=== PATIENT | female | born 1985 | race African-American/Black ===

== ENCOUNTER 2016-12-26 18:56 | Inpatient (IN) | payer OTHER ==
[2016-12-27] MEDS ORDERED: Dibucaine 1% 28.35 GM TUBE PR PRN (04:54)
[2016-12-27] MEDS ORDERED: Acetaminophen TAB* 325 MG PO PRN (04:54)
[2016-12-27] MEDS ORDERED: Glycerin ADULT SUPP PR PRN (04:54)
[2016-12-27] MEDS ORDERED: Ibuprofen TAB* 600 MG PO PRN (04:54)
[2016-12-27] MEDS ORDERED: OXYTOCIN* 10 UNITS/ML 1 ML VIAL IM ONE (04:54)
[2016-12-27] MEDS: Witch Hazel PAD* JAR TOPICAL PRN (07:32)
[2016-12-27] MEDS: Docusate CAP* 100 MG PO SCH (08:10)
[2016-12-27] MEDS ORDERED: Simethicone CHEW TAB* 80 MG PO SCH (08:30)
[2016-12-28 07:15] LABS: Hematocrit 26 % (35-47); Hemoglobin 8.6 g/dl (12.0-16.0); Mean Corpuscular HGB Conc 33 g/dl (31-36); Mean Corpuscular Hemoglobin 23 pg (27-31); Mean Platelet Volume 9 um3 (7.4-10.4); Red Blood Count 3.77 10^6/ul (4.0-5.4); Red Cell Distribution Width 16 % (10.5-15)
[2016-12-28] MEDS: Docusate CAP* 100 MG PO SCH ×2 (07:20→09:04)
[2016-12-28 07:41] LABS: Comments Flag Yes
[2016-12-28 07:42] LABS: Mean Corpuscular Volume 70 fL (80-97)
[2016-12-28] MEDS: Ferrous Gluconate TAB* 324 MG TAB PO SCH ×2 (09:02→21:28)
[2016-12-28] MEDS: Witch Hazel PAD* JAR TOPICAL PRN (21:25)
--- NOTE | 2016-12-28 22:37 | PTEDU ---
Patient Name: TYREL LINDSEY TYREL LINDSEY selected video: Never Ever Shake a Baby to view on 12/28/2016 at 10:36:15 [id number]
--- NOTE | 2016-12-28 22:47 | PTEDU ---
Patient Name: TYREL LINDSEY TYREL LINDSEY selected video: BBOB: Nurturing Your Gorgeous \T\Growing Baby by to view on 12/28/2016 at 10:46:15 PM from [id number]
[2016-12-29 08:35] VITALS: BP 95/56
[2016-12-29] MEDS: Docusate CAP* 100 MG PO SCH (09:07)
[2016-12-29] MEDS: Ferrous Gluconate TAB* 324 MG TAB PO SCH (09:07)
== END 2016-12-29 13:52 | disposition home or self-care (01) | DRG 775 ==
LOC: MCHOBOUT 18:56 → MCHOB 20:19
PROVIDERS: ADMIT Obstetrics & Gynecology; ATTEND Obstetrics & Gynecology
PROC: 10E0XZZ Delivery of Products of Conception, External Approach (ICD-10-PCS; principal; 2016-12-27)
PROC: 0HQ9XZZ Repair Perineum Skin, External Approach (ICD-10-PCS; 2016-12-27)
DX: O48.0 Post-term pregnancy (principal); D57.3 Sickle-cell trait; O70.0 First degree perineal laceration during delivery; O99.02 Anemia complicating childbirth; D64.9 Anemia, unspecified; O77.0 Labor and delivery complicated by meconium in amniotic fluid; Z3A.40 40 weeks gestation of pregnancy; Z37.0 Single live birth
CPT/HCPCS: 36415; 85025; A9270-GY; J2590

== ENCOUNTER 2019-02-25 22:57 | Inpatient (IN) | payer OTHER ==
--- NOTE | 2019-02-26 01:42 | HP ---
General Information - Reason for Visit at 40 weeks, SROM and labor. - General Information Maternal Age: 32 Grav: 2 Para: 1 SAB: 0 IEA: 0 Estimated Due Date: 02/23/19 Determined By: Early Ultrasound Maternal Blood Type and Rh: O Positive - Results this Serology/RPR Result: Non-Reactive Rubella Result: Immune HBsAg Result: Negative HIV Result: Negative GBS Culture Result: Negative Past Medical History Delivery History: Hx Uncomplicated Vaginal Delivery, See Records Pertinent Past Medical History: See Records Past Medical History Comment: Sickle cell trait Eczema Uterine fibroids Pertinent Past Surgical History: See Records Past Surgical History Comment: Right knee ACL repair 2010 Pertinent Family History: See Records - Antepartal Records Antepartal Records: Reviewed, Uncomplicated Review of Systems Constitutional: Uncomfortable CV Complaint: No Respiratory: Shortness of Breath: No Gastrointestinal: No Nausea/Vomiting, Normal Bowel Movement Genitourinary: Leaking Fluid, No Dysuria, No Bleeding Musculoskeletal: Contractions Neurological: No Headache, No Visual Changes Movement: Normal Exam Allergies/Adverse Reactions: Allergies MS Mustard Seed [Mustard Seed] Adverse Reaction (Verified 02/25/19 23:40) Itching Temp 98.2 BP 94/60 P108 RR 20 - Measurements Height: 5 ft 3 in Weight: 167 lb Weight in lbs: [id number] Body Mass Index (BMI): 29.5 Pre- Weight: 140 lb Weight Gained This : 27 lbs and 0 ozs - Exam Breast: Breast Exam Deferred CVA: No CVA Tenderness Extremities: No Edema Heart: Normal Rhythm/Heart Sounds HEENT: No Significant Findings Lungs: Clear Bilaterally Rectal: Rectal Exam Deferred Reflexes: DTR 2+ Thyroid: No Thyromegaly - Abdominal Exam Abdomen Exam: Non-Tender, Fundal Height Consistent with Dates Targeted Exam Findings See L&D Outpatient Visit Provider Note for Findings: N/A Cervical Exam: 9cm, Anterior Lip Effacement: 90% Station: 0 Presenting Part: Vertex Membrane Status: SROM Amniotic Fluid Evaluation: Clear Bleeding/Discharge: None EFM Findings - External Monitor Findings Baseline Heart Rate: 150 External Monitor Findings: Accelerations Present Contractions: Regular, Strong, 45-90 Seconds Assessment/Plan - Assessment Term with SROM in labor. - Plan Plan: Admit - Anticipate Vaginal Delivery - Date/Time of Admission Date of Admission: 02/26/19 Time of Admission: 23:50
[2019-02-26] MEDS ORDERED: Glycerin ADULT SUPP PR PRN (01:45)
[2019-02-26] MEDS ORDERED: Acetaminophen TAB* 325 MG PO PRN (01:45)
[2019-02-26] MEDS ORDERED: Dibucaine 1% 28.35 GM TUBE PR PRN (01:45)
[2019-02-26] MEDS ORDERED: Witch Hazel PAD* JAR TOPICAL PRN (01:45)
[2019-02-26] MEDS ORDERED: Ibuprofen TAB* 600 MG PO PRN (01:45)
[2019-02-26] MEDS ORDERED: OXYTOCIN* 10 UNITS/ML 1 ML VIAL IM ONE (01:45)
--- NOTE | 2019-02-26 01:45 | PROCNOTE ---
[facility]: Delivery Note - Delivery A Date of : 02/26/19 Time of : 01:21 Sex: Male Weight at : 7 lb 5 oz Score 1 Minute: 8 Score 5 Minutes: 9 Gestational Age in Weeks and Days at Delivery: 40 Weeks and 3 Days Delivery Method: Spontaneous Vaginal Labor: Spontaneous Did Patient attempt ?: N/A, No Previous Amniotic Fluid: Clear Estimated Blood Loss: 200 Anesthesia/Analgesia: None Delivered By: Anderson Cameron - Nursery Level of Nursery: Regular/Bedside - Perineum Perineal Injury: None/Intact - Events Delivery Events of Note: Pitocin Only After Delivery - 10 units IM X 1 dose
[2019-02-26] MEDS ORDERED: Lactated Ringers 1000 ML Bag* 1,000 ML IV SCH (02:00)
[2019-02-26] MEDS ORDERED: Simethicone TAB* 80 MG TAB.CHEW PO SCH (08:30)
[2019-02-26] MEDS: Docusate CAP* 100 MG PO SCH ×3 (09:04→21:18)
--- NOTE | 2019-02-26 20:08 | PTEDU ---
Patient Name: TYREL LINDSEY TYREL LINDSEY selected video: Follow Me Mum: The [facility] to Successful to view on 05/2019 at 8:07:[address] [id number]
--- NOTE | 2019-02-26 20:29 | PTEDU ---
Patient Name: TYREL LINDSEY TYREL LINDSEY selected video: Never Ever Shake a Baby to view on 02/26/2019 at 8:28:52 PM from [email or web address]
--- NOTE | 2019-02-26 21:00 | PTEDU ---
Patient Name: TYREL LINDSEY TYREL LINDSEY selected video: Never Ever Shake a Baby to view on 02/26/2019 at 9:00:36 PM from [email or web address]
[2019-02-27 06:06] LABS: ABS Eosinophils 0.1 10^3/ul (0-0.6); ABS Monocytes 1.4 10^3/ul (0-0.8); ABS Neutrophils 11.7 10^3/ul (1.5-7.7); Eosinophil % 0.9 %; Hematocrit 31 % (35-47); Hemoglobin 10.3 g/dL (12.0-16.0); Lymphocyte % 13.1 %; Mean Corpuscular HGB Conc 33 g/dL (31-36); Mean Corpuscular Hemoglobin 24 pg (27-31); Mean Corpuscular Volume 72 fL (80-97); Mean Platelet Volume 8.6 fL (7.4-10.4); Nucleated Red Blood Cells % 0.1; Platelet Count 170 10^3/uL (150-450); Red Blood Count 4.37 10^6 /uL (3.70-4.87); Red Cell Distribution Width 15 % (10-15); White Blood Count 15.3 10^3/uL (3.5-10.8)
[2019-02-27] MEDS ORDERED: Ferrous Gluconate TAB* 324 MG TAB PO SCH (09:00)
[2019-02-27] MEDS: Docusate CAP* 100 MG PO SCH ×2 (09:08→16:52)
[2019-02-27 10:08] VITALS: BP 93/57
== END 2019-02-27 19:13 | disposition home or self-care (01) | DRG 807 ==
LOC: MCHOBOUT 22:57 → MCHOB 23:03
PROVIDERS: ADMIT Obstetrics & Gynecology; ATTEND Obstetrics & Gynecology
PROC: 10E0XZZ Delivery of Products of Conception, External Approach (ICD-10-PCS; principal; 2019-02-26)
DX: O48.0 Post-term pregnancy (principal); Z37.0 Single live birth; Z3A.40 40 weeks gestation of pregnancy; O34.10 Maternal care for benign tumor of corpus uteri, unspecified trimester; D25.9 Leiomyoma of uterus, unspecified; O99.02 Anemia complicating childbirth; D57.3 Sickle-cell trait
CPT/HCPCS: 36415; 85025; 87086; A9270-GY